=== PATIENT | male | born 1975 | race Caucasian/White ===

== ENCOUNTER 2018-04-19 09:33 | Emergency (ER) | payer MEDICAID ==
[~2018-04-19] VITALS: Ht 177.8 cm; Wt 99.8 kg
[2018-04-19 09:52] VITALS: BP 135/77
[2018-04-19] MEDS ORDERED: FLUORESCEIN SODIUM OPHTH 1 EA STRIP ONE (09:53)
[2018-04-19] MEDS ORDERED: TETRACAINE HCL/PF 0.5% UD 2 ML BOTTLE ONE (09:53)
== END 2018-04-19 10:18 | disposition home or self-care (01) ==
LOC: ER 09:37
DX: H00.024 Hordeolum internum left upper eyelid (principal); F10.10 Alcohol abuse, uncomplicated; Y90.9 Presence of alcohol in blood, level not specified
CPT/HCPCS: 99283; A4606; Z7610